=== PATIENT | male | born 1980 | race Caucasian/White ===

== ENCOUNTER 2017-08-27 12:27 | Outpatient (CLI) | payer SELFPAY ==
[2017-08-27 13:03] LABS: Hemoglobin A1c 6.4 % (4.0-6.0)
[2017-08-27 13:14] LABS: #Basophils 0.2 thou/uL (0.0-0.2); #Eosinphils 0.3 thou/uL (0.0-0.7); #Lymphocytes 2.1 thou/uL (1.20-3.40); #Monocytes 0.7 thou/uL (0.11-0.59); #Neutrophils 3.9 thou/uL (1.40-6.50); %Basophils 2.3 % (0.0-1.0); %Eosinophils 4.2 % (0.0-10.0); %Lymphocytes 29.1 % (21.0-51.0); %Monocytes 9.4 % (0.0-10.0); %Neutrophils 55.1 % (42.0-75.0); Giant Platelets SLIGHT; Hemoglobin 14.4 g/dL (14.0-18.0); Large Platelets SLIGHT; MDiff Complete? YES; Mean Corpuscular HGB CONC 32.8 g/dL (32.0-36.0); Mean Corpuscular Hemoglobin 27.8 pg (27.0-31.0); Mean Corpuscular Volume 84.7 fl (80.0-94.0); Mean Platelet Volume 13.2 fL (7.4-10.4); PLT Morphology Comment Appears Decreased; Platelet Count 71 thou/uL (130-400); RBC Distribution Width 14.5 % (11.5-14.5); Red Blood Cell (RBC) Count 5.19 mill/uL (4.70-6.10); White Blood Cell (WBC) Count 7.1 thou/uL (4.8-10.8)
[2017-08-27 13:17] LABS: ALT (SGPT) 80 U/L (8-55); AST (SGOT) 88 U/L (5-34); Albumin 3.7 g/dL (3.5-5.0); Alkaline Phosphatase 114 U/L (40-150); Anion Gap 11 mmol/L (10-20); BUN (Urea Nitrogen) 9 mg/dL (8.9-20.6); Bilirubin, Total 1.2 mg/dL (0.2-1.2); Calc. Creatinine Clearance 0 mL/min (70-130); Calcium 8.7 mg/dL (7.8-10.44); Carbon Dioxide 27 mmol/L (22-29); Cardiac Risk 3.3 (Less than 4.5); Chloride 106 mmol/L (98-107); Cholesterol 127 mg/dl (< 200 Desired); Estimated GFR-MDRD Greater than 90; Globulin 2.8 g/dL (2.4-3.5); Glucose 152 mg/dL (70-105); HDL Cholesterol 39 mg/dL (>60 Neg Risk); LDL Cholesterol, Calculated 70 mg/dL; Potassium 3.7 mmol/L (3.5-5.1); Protein, Total 6.5 g/dL (6.0-8.3); Sodium 140 mmol/L (136-145); Triglycerides 88 mg/dL (Less than 150)
[2017-08-27 17:42] LABS: Creatinine, Urine 259.88 mg/dL (63-166); Microalbumin Urine 6.1 mg/dL (0.5-50.0); Microalbumin/Creat Ratio 23.5 mg/g (Less than 30)
== END 2017-08-27 12:28 | disposition home or self-care (01) ==
LOC: MADLABSP 12:27 → EDSTATUS 22:00
PROVIDERS: ATTEND Family Medicine
DX: I15.9 Secondary hypertension, unspecified (principal); E11.9 Type 2 diabetes mellitus without complications
CPT/HCPCS: 36415; 80053; 80061; 82043; 83036; 84443; 85025

== ENCOUNTER 2018-03-18 10:45 | Emergency (ER) | payer SELFPAY ==
[~2018-03-18 10:45] MED LIST: Sodium Chloride 0.9% 1,000 ML BAG ONE
[2018-03-18] MEDS ORDERED: Aspirin 325 MG TAB ONE (10:58)
[2018-03-18] MEDS ORDERED: MORPHINE 10 MG/ML SYRINGE ONE (10:58)
[2018-03-18] MEDS ORDERED: Metoprolol Tartrate 5 MG/5 ML VIAL ONE (10:58)
[2018-03-18 11:19] LABS: #Basophils 0.1 thou/uL (0.0-0.2); #Eosinphils 0.2 thou/uL (0.0-0.7); #Monocytes 0.5 thou/uL (0.11-0.59); #Neutrophils 3.1 thou/uL (1.40-6.50); %Basophils 1.8 % (0.0-1.0); %Eosinophils 3.6 % (0.0-10.0); %Lymphocytes 33.4 % (21.0-51.0); %Monocytes 8.6 % (0.0-10.0); %Neutrophils 52.6 % (42.0-75.0); Hemoglobin 14.4 g/dL (14.0-18.0); Mean Corpuscular Hemoglobin 29.2 pg (27.0-31.0); Mean Corpuscular Volume 83.4 fl (80.0-94.0); Mean Platelet Volume 11.3 fL (7.4-10.4); PLT Morphology Comment Appears Decreased; Platelet Count 68 thou/uL (130-400); Red Blood Cell (RBC) Count 4.93 mill/uL (4.70-6.10)
[2018-03-18 11:34] LABS: Anion Gap 15 mmol/L (10-20); BUN (Urea Nitrogen) 11 mg/dL (8.9-20.6); Calc. Creatinine Clearance 0 mL/min (70-130); Calcium 8.9 mg/dL (7.8-10.44); Chloride 109 mmol/L (98-107); Estimated GFR-MDRD Greater than 90; Glucose 109 mg/dL (70-105); Potassium 4.1 mmol/L (3.5-5.1); Sodium 143 mmol/L (136-145)
[2018-03-18 11:38] LABS: Troponin I Less than 0.010 ng/mL (< 0.028)
--- NOTE | 2018-03-18 11:49 | RAD ---
PORTABLE UPRIGHT FRONTAL CHEST RADIOGRAPH: Date: 03/18/18 COMPARISON: None. HISTORY: Chest pain. FINDINGS: There is increased density in the right paratracheal region. There is no pneumothorax, pleural fluid, focal consolidation, or alveolar edema. The cardiac silhouette is prominent. IMPRESSION: Prominent cardiac silhouette, which may signify magnification and/or enlargement. Increased density i n the right paratracheal region. This could be vascular in nature or on the basis of lymphadenopathy. PA and lateral chest imaging is advised for further assessment. CODE T. POS: LUISA
[2018-03-18 11:52] LABS: Carbon Dioxide 23 mmol/L (22-29)
[2018-03-18 11:54] LABS: CKMB 8.2 ng/mL (0-6.6)
== END 2018-03-18 12:45 | disposition home or self-care (01) ==
LOC: MADERS 10:45
DX: M62.838 Other muscle spasm (principal); E86.0 Dehydration; E11.9 Type 2 diabetes mellitus without complications; I10 Essential (primary) hypertension; F17.210 Nicotine dependence, cigarettes, uncomplicated
CPT/HCPCS: 36415; 71045; 80048; 82553; 84484; 85025; 85379; 93005; 94760; 96361; 96374; 96375; J2270; J7050